=== PATIENT | female | born 1990 | race Hispanic/Latino ===

== ENCOUNTER 2018-09-03 18:27 | Emergency (ER) | payer OTHER, MEDICARE ==
[~2018-09-03 18:27] MED LIST: DEXL60CA3 PO
[2018-09-03 19:13] LABS: BASOPHILS % (AUTO) 0.4 % (0.0-5.0); EOSINOPHILS % (AUTO) 1.3 % (0.0-8.0); HEMATOCRIT 36.9 % (36-48); LYMPHOCYTES % (AUTO) 20.9 % (21.0-51.0); MEAN CORPUSCULAR HEMOGLOBIN 30.6 pg (27.0-33.0); MEAN CORPUSCULAR VOLUME 87.6 fL (79-99); MONOCYTES % (AUTO) 4.4 % (3.0-13.0); PLATELET COUNT (AUTO) 155 K/uL (130-400); RED BLOOD CELL COUNT(AUTO) 4.21 MIL/uL (4.00-5.50); WHITE BLOOD COUNT (AUTO) 9.8 K/uL (4.8-10.8)
[2018-09-03 19:37] LABS: CREATININE 0.7 mg/dL (0.5-1.5); POTASSIUM 3.1 mmol/L (3.5-5.1)
[2018-09-03 19:42] LABS: BILIRUBIN,DIRECT 0.3 mg/dL (0.0-0.3); BILIRUBIN,TOTAL 0.9 mg/dL (0.2-1.0); TOTAL PROTEIN, SERUM 7.7 g/dL (6.0-8.3)
[2018-09-03] MEDS ORDERED: SODIUM CHLORIDE 0.9% 1000ML 1,000 ML IV ONE (19:46)
[2018-09-03] MEDS ORDERED: ONDANSETRON HCL 4 MG/2 ML VIAL ONE (19:52)
[2018-09-03] MEDS ORDERED: FAMOTIDINE/PF 20 MG/2 ML VIAL IV ONE (19:52)
[2018-09-03] MEDS ORDERED: MORPHINE SULFATE 4 MG/1ML SYG ONE (21:20)
== END 2018-09-03 22:47 | disposition home or self-care (01) ==
LOC: EDH 18:27
DX: R10.11 Right upper quadrant pain (principal); R94.5 Abnormal results of liver function studies; R74.8 Abnormal levels of other serum enzymes; R93.2 Abnormal findings on diagnostic imaging of liver and biliary tract; J45.909 Unspecified asthma, uncomplicated; K21.9 Gastro-esophageal reflux disease without esophagitis; Z90.49 Acquired absence of other specified parts of digestive tract
CPT/HCPCS: 36415; 76705; 80048; 80076; 83690; 85025; 96374; 96375; 99285; J2270; J2405; J3490; J7030

== ENCOUNTER 2018-10-01 05:27 | Day surgery (SDC) | payer OTHER, MEDICARE ==
[~2018-10-01] VITALS: Ht 152.4 cm; Wt 72.1 kg
[~2018-10-01 05:27] MED LIST changes: +ALBU8.5H8 IH; +FLUT1DIS IH; +ONDA4TAB10 PO
[2018-10-01] MEDS ORDERED: SODIUM CHLORIDE 0.9% 1000ML 1,000 ML IV ONE (05:42)
[2018-10-01 05:51] VITALS: BP 124/73
[2018-10-01 06:09] LABS: HEMATOCRIT 32.3 % (36-48); MEAN CORPUSCULAR HGB CONC 34.7 g/dL (32.0-36.0); MEAN CORPUSCULAR VOLUME 89.4 fL (79-99); PLATELET COUNT (AUTO) 105 K/uL (130-400); RED BLOOD CELL COUNT(AUTO) 3.61 MIL/uL (4.00-5.50); RED CELL DISTRIBUTION WIDTH 14.1 % (11.0-15.5); WHITE BLOOD COUNT (AUTO) 4.8 K/uL (4.8-10.8)
[2018-10-01 06:22] LABS: INR 0.95 (0.85-1.15)
[2018-10-01 06:56] LABS: BAND NEUTROPHILS % (MANUAL) 1 % (0-2); LYMPHOCYTES % (MANUAL) 28 % (22-44); MONOCYTES % (MANUAL) 5 % (2-9); SEGMENTED NEUTROPHILS % 66 % (40-70)
[2018-10-01] MEDS ORDERED: PROPOFOL 10 MG/ML 20ML VIAL IV ONE ×2 (06:56→07:05)
[2018-10-01 06:57] LABS: MAN.DIFF COMMENT-IMPRESSION MANUAL DIFFERENTIAL; PLATELET MORPHOLOGY COMMENT LARGE PLTS PRESENT
[2018-10-01 07:15] VITALS: BP 91/48
[2018-10-01 07:20] VITALS: BP 104/72
[2018-10-01 07:25] VITALS: BP 106/72
[2018-10-01 07:30] VITALS: BP 110/72
[2018-10-01 07:35] VITALS: BP 112/72
--- NOTE | 2018-10-01 07:35 | NUR ---
dc dc instructions given to pts significant other. instructed to f/u with dr. ruelas, to continue home meds. patient awake and alert, denies any pain or discomforts. pt waiting for her ride to go home, piv removed , site asymptomatic,
--- NOTE | 2018-10-01 07:50 | NUR ---
dc pt dc home via wc, no distress noted. denied any pain or discomforts. accompanied by significant other
== END 2018-10-01 07:50 | disposition home or self-care (01) ==
LOC: ENDO 05:27 → DAH 05:27 → ENDO 07:50
PROVIDERS: ATTEND Internal Medicine
DX: K29.50 Unspecified chronic gastritis without bleeding (principal); K85.90 Acute pancreatitis without necrosis or infection, unspecified; K31.89 Other diseases of stomach and duodenum; K21.9 Gastro-esophageal reflux disease without esophagitis; F41.9 Anxiety disorder, unspecified; F32.9 Major depressive disorder, single episode, unspecified; J45.909 Unspecified asthma, uncomplicated; E66.9 Obesity, unspecified; Z68.31 Body mass index [BMI] 31.0-31.9, adult; Z91.013 Allergy to seafood; Z90.49 Acquired absence of other specified parts of digestive tract; Z79.899 Other long term (current) drug therapy; Z98.890 Other specified postprocedural states; Z83.3 Family history of diabetes mellitus; Z82.49 Family history of ischemic heart disease and other diseases of the circulatory system; Z80.0 Family history of malignant neoplasm of digestive organs
CPT/HCPCS: 36415; 43237; 43239; 84703; 85025; 85610; 88305; A4606; J2704 ×2; J7030

== ENCOUNTER → 2018-12-15 | Outpatient (CLI) | payer OTHER, MEDICARE | END | disposition home or self-care (01) | LOC: RAH 10:36 | PROVIDERS: ATTEND Internal Medicine | DX: K21.9 Gastro-esophageal reflux disease without esophagitis (principal) | CPT/HCPCS: 78264; A9541 ==

== ENCOUNTER 2019-07-31 10:51 | Emergency (ER) | payer OTHER, MEDICARE ==
[2019-07-31 11:58] LABS: CREATININE 0.6 mg/dL (0.5-1.5); POTASSIUM 3.4 mmol/L (3.5-5.1)
== END 2019-07-31 12:38 | disposition home or self-care (01) ==
LOC: EDH 10:51
DX: Z00.8 Encounter for other general examination (principal); J45.909 Unspecified asthma, uncomplicated; K21.9 Gastro-esophageal reflux disease without esophagitis; Z90.49 Acquired absence of other specified parts of digestive tract; Z91.013 Allergy to seafood
CPT/HCPCS: 36415; 80048

== ENCOUNTER 2021-10-04 06:49 | Day surgery (SDC) | payer OTHER, MEDICARE ==
[~2021-10-04] VITALS: Ht 152.4 cm; Wt 68.0 kg
[~2021-10-04 06:49] MED LIST changes: +ESCI20TA38 PO; +LORA-192 PO
[2021-10-04] MEDS ORDERED: PROPOFOL 10 MG/ML 20ML VIAL IV ONE ×2 (07:48→07:56)
[2021-10-04] MEDS ORDERED: LIDOCAINE PF 100MG/5ML (2%) SYRINGE 5ML ONE (07:49)
[2021-10-04 08:14] VITALS: BP 84/45
[2021-10-04 08:18] VITALS: BP 98/59
[2021-10-04 08:23] VITALS: BP 101/61
[2021-10-04] MEDS ORDERED: 0.9%NACL 1000ML 1,000 ML IV ONE (08:37)
== END 2021-10-04 08:40 | disposition home or self-care (01) ==
LOC: ENDO 06:49 → DAH 06:49 → ENDO 08:40
PROVIDERS: ATTEND Surgery
DX: R10.13 Epigastric pain (principal); K21.9 Gastro-esophageal reflux disease without esophagitis; K31.84 Gastroparesis; R63.30 Feeding difficulties, unspecified; J45.909 Unspecified asthma, uncomplicated; F41.9 Anxiety disorder, unspecified; F32.A Depression, unspecified; K74.69 Other cirrhosis of liver; E66.9 Obesity, unspecified; M79.7 Fibromyalgia; Z90.49 Acquired absence of other specified parts of digestive tract; Z83.3 Family history of diabetes mellitus; Z82.49 Family history of ischemic heart disease and other diseases of the circulatory system; Z80.0 Family history of malignant neoplasm of digestive organs; Z98.84 Bariatric surgery status; Z98.890 Other specified postprocedural states; Z68.29 Body mass index [BMI] 29.0-29.9, adult
CPT/HCPCS: 87426; 43239; J7030; J2001; J2704 ×2; 43235

== ENCOUNTER → 2022-10-10 | Outpatient (CLI) | payer OTHER, MEDICARE | END | disposition home or self-care (01) | LOC: RAH 08:36 | PROVIDERS: ATTEND Internal Medicine Gastroenterology | DX: K21.9 Gastro-esophageal reflux disease without esophagitis (principal); K44.9 Diaphragmatic hernia without obstruction or gangrene; R11.0 Nausea; Z98.84 Bariatric surgery status | CPT/HCPCS: 74240 ==

== ENCOUNTER → 2023-06-20 | Outpatient (CLI) | payer OTHER, MEDICARE | END | disposition home or self-care (01) | LOC: RAH 09:06 | PROVIDERS: ATTEND Family Medicine | DX: K31.84 Gastroparesis (principal); R14.0 Abdominal distension (gaseous) | CPT/HCPCS: 74240 ==

== ENCOUNTER → 2023-07-20 | Outpatient (CLI) | payer OTHER, MEDICARE ==
[~2023-07-20] MED LIST changes: +ONDA-243 PO; -ONDA4TAB10 PO
== END | disposition home or self-care (01) ==
LOC: SHCH 08:21
PROVIDERS: ATTEND Internal Medicine Cardiovascular Disease
DX: I08.3 Combined rheumatic disorders of mitral, aortic and tricuspid valves (principal); I95.9 Hypotension, unspecified
CPT/HCPCS: 93306; 93356

== ENCOUNTER → 2024-08-17 | Outpatient (CLI) | payer OTHER, MEDICARE ==
--- NOTE | 2024-08-18 17:10 | HMCIMG ---
Procedure: Double contrast upper GI series CLINICAL HISTORY: Gastroparesis, abdominal distention, GERD without esophageal diabetes; diaphragmatic hernia. PROCEDURE: After patient was given effervescent crystals and thick barium there is no evidence of intrinsic or extrinsic lesion seen in the esophagus. There is small to moderate hiatal hernia with grade 3 esophageal reflux. There is a gastric stimulator implant with the leads in the antrum and body of the stomach. The stomach is normal size shape and configuration the rugal fold appears within normal. The duodenal bulb and duodenal sweep and upper jejunum appears to be normal. IMPRESSION: Type I hiatal hernia with grade 3 esophageal reflux The remaining study demonstrate no other abnormality.
== END | disposition home or self-care (01) ==
LOC: RAH 08:53
PROVIDERS: ATTEND Surgery
DX: K21.9 Gastro-esophageal reflux disease without esophagitis (principal); K44.9 Diaphragmatic hernia without obstruction or gangrene; K31.84 Gastroparesis; R14.0 Abdominal distension (gaseous); R10.13 Epigastric pain; I85.00 Esophageal varices without bleeding
CPT/HCPCS: 74240

== ENCOUNTER 2024-10-13 01:08 | Observation (INO) | payer OTHER, MEDICAID ==
[~2024-10-13] VITALS: Ht 152.4 cm; Wt 65.8 kg
[2024-10-13 02:12] LABS: IMMATURE GRANULOCYTE ABSOLUTE 0.01 K/uL (0-1); NUCLEATED RED BLOOD CELLS 0.0 % (0.0-0.19); PLATELET COUNT (AUTO) 69 K/uL (130-400); RED BLOOD CELL COUNT(AUTO) 2.94 MIL/uL (4.00-5.50); RED CELL DISTRIBUTION WIDTH 15.6 % (11.0-15.5); WHITE BLOOD COUNT (AUTO) 3.5 K/uL (4.8-10.8)
--- NOTE | 2024-10-13 02:12 | ERN ---
ED Note History of Present Illness Stated Complaint: C/O BROKEN PORT TO FEEDING TUBE Chief Complaint: Other Problems Time Seen by MD: 01:14 Time Seen by Midlevel: 01:14 Dictation: The patient is a 33-year-old female with a history of gastroparesis and feeding- tube placement who presents to the emergency department with complaints of broken feeding port onset 11:00 p.m.. Patient reports she is on constant feedings. Reports she has been having trouble with her feeding tube and is scheduled for an IR procedure tomorrow. Allergies: Coded Allergies: No Known Drug Allergies (Unverified Allergy, Unknown, 07/23/16) prednisone (Unverified Allergy, Unknown, 10/03/21) shellfish derived (Unverified Allergy, Unknown, 10/04/18) Home Meds Reported Medications Escitalopram Oxalate (Escitalopram Oxalate) 20 Mg Tablet, 20 MG PO HS, TAB 10/03/21 Lorazepam (Ativan) 1 Mg Tablet, 1 MG PO HS, TAB 10/03/21 Ondansetron (Ondansetron Odt) 4 Mg Tab.rapdis, 4 MG PO DAILY PRN for NAUSEA/VOMITING, TAB 09/29/18 Albuterol Sulfate (Proair Hfa) 8.5 Gm Hfa.aer.ad, 8.5 GM IH DAILY 09/29/18 Fluticasone/Salmeterol (Advair 100-50 Diskus) 1 Each Blst.w.dev, 1 EACH IH DAILY 09/29/18 Dexlansoprazole (Dexilant) 60 Mg Cap.mp, 60 MG PO DAILY 07/23/16 Past Medical History Past Medical History: Hypothyroid, Other Surgical History: Cholecystectomy, Other Surgical History Other: FEEDING TUBE; GASTRIC SLEEVE LMP: Oct 10, 2024 RN Note Reviewed/Agreed w/PFSH: Yes Review of System Dictation Constitutional: Negative for fever,chills, and weight loss Eyes: Negative for injury, pain,redness, and discharge ENT: Negative for injury,pain or swelling Cardiovascular: Negative for chest pain, palpitations, and edema Respiratory: Negative for shortness of breath, cough, and wheezing, Abdomen/GI: Negative for abdominal pain, nausea, vomiting, diarrhea, and constipation positive for feeding tube malfunction Back: Negative for injury and pain : Negative for injury, bleeding and discharge MS/Extremity: Negative for injury and deformity Skin: Negative for rash, and discoloration Neuro: Negative for headache, weakness, numbness, tingling, and seizure Psych: Negative for suicide ideation, homicidal ideation, and hallucinations Initial Vital Sign VS Vital Signs Date Time Temp Pulse Resp B/P (MAP) Pulse Ox O2 Delivery O2 Flow Rate FiO2 10/13/24 01:10 98.8 76 20 106/61 99 Room Air 10/13/24 01:36 0 21 Physical Exam Dictation Vital Signs reviewed General Appearance: Alert, oriented x 3, no acute distress, well developed, nourished. Head and Face: non-traumatic. Eyes: PERRL, pink conjunctivas, eyelid no trauma, anterior chamber with arcus senilis. Ears: Pinnas intact and no signs of trauma or erythema ear canals clear and no discharge TM no erythema Nose: No discharge, no bleeding. Oropharynx: Mouth normal, tongue pink. pharynx clear,no erythema, tonsils no exudates, no abscesses noted, mucous membrane moist Neck: Supple, non-tender, no thyromegaly, no masses, no JVD, no bruits Breast:Deferred Chest:No tenderness, no crepitus, no paradoxical movement, no retractions Lungs:Clear, well-ventilated, symmetric, no rales, no wheezing, no rhonchi, no stridor, good breath sounds bilaterally Heart: Regular rate, regular rhythm, no murmur, no gallops Vascular: no peripheral edema, Abdomen: Soft, positive bowel sounds, nondistended, no guarding, nontender, no rebound, no masses no hepatomegaly, no splenomegaly, no Covarrubias's sign, no hernias. Feeding tube noted to left upper quadrant Rectal: Deferred Genital: Deferred Neurological: Normal speech, motor function intact, sensory function intact Musculoskeletal: Neck nontender, full range of motion, back nontender, full range of motion, Extremities: nontender, full range of motion Skin: Color pink, dry, no turgor, no rash, no lacerations, no abrasions, no contusions. Lymphatic: Deferred Results (Laboratory/Radiology) Laboratory/Radiology Laboratory Tests Test 10/13/24 01:55 White Blood Count 3.5 K/uL (4.8-10.8) L Red Blood Count 2.94 MIL/uL (4.00-5.50) L Hemoglobin 8.7 g/dL (12.0-16.0) L Hematocrit 25.3 % (36-48) L Mean Corpuscular Volume 86.1 fL (79-99) Mean Corpuscular Hemoglobin 29.6 pg (27.0-33.0) Mean Corpuscular Hemoglobin Concent 34.4 g/dL (32.0-36.0) Red Cell Distribution Width 15.6 % (11.0-15.5) H Platelet Count 69 K/uL (130-400) L Mean Platelet Volume 11.8 fL (7.5-10.5) H Immature Granulocyte % (Auto) 0.3 % (0-1) Neutrophils (%) (Auto) 71.1 % (40.0-77.0) Lymphocytes (%) (Auto) 16.8 % (21.0-51.0) L Monocytes (%) (Auto) 6.6 % (3.0-13.0) Eosinophils (%) (Auto) 4.6 % (0.0-8.0) Basophils (%) (Auto) 0.6 % (0.0-5.0) Neutrophils # (Auto) 2.5 K/uL (1.8-7.7) Lymphocytes # (Auto) 0.6 K/uL (1.0-4.8) L Monocytes # (Auto) 0.2 K/uL (0.1-1.0) Eosinophils # (Auto) 0.16 K/uL (0.00-0.70) Basophils # (Auto) 0.02 K/uL (0.00-0.20) Absolute Immature Granulocyte (auto 0.01 K/uL (0-1) Nucleated Red Blood Cells 0.0 % (0.0-0.19) Platelet Morphology Comment See comments Urine Color LIGHT-YELLOW (YELLOW) Urine Appearance CLOUDY (CLEAR) H Urine pH 6.0 (5.0-8.0) Urine Specific Benson 1.015 (1.001-1.031) Urine Protein NEGATIVE mg/dL (NEGATIVE) Urine Glucose (UA) NEGATIVE mg/dL (NEGATIVE) Urine Ketones NEGATIVE mg/dL (NEGATIVE) Urine Occult Blood NEGATIVE (NEGATIVE) Urine Nitrate NEGATIVE (NEGATIVE) Urine Bilirubin NEGATIVE mg/dL (NEGATIVE) Urine Urobilinogen 0.2 mg/dL (0.2-1.0) Urine Leukocyte Esterase NEGATIVE Teodora/uL Urine RBC 2-5 /HPF (0-1) H Urine WBC 6-10 /HPF (0-1) H Urine Squamous Epithelial Cells MOD /HPF (0-2) Urine Bacteria FEW /HPF (None Seen) Sodium Level 135 mmol/L (136-145) L Potassium Level 3.8 mmol/L (3.5-5.1) Chloride Level 99 mmol/L (101-111) L Carbon Dioxide Level 28 mmol/L (21-32) Blood Urea Nitrogen 15 mg/dL (7-18) Creatinine 0.6 mg/dL (0.5-1.0) Glomerular Filtration Rate Calc 123 mL/min (>90) Random Glucose 92 mg/dL (70-105) Total Calcium 8.3 mg/dL (8.5-10.1) L Serum Test, Qualitative NEGATIVE (NEGATIVE) Labs Reviewed?: Yes ED Course ED Course Orders Procedure Category Date Status Time Cbc With Differential LAB 10/13/24 Complete 01:35 Basic Metabolic Panel LAB 10/13/24 Complete 01:35 Testing, LAB 10/13/24 Complete Serum Hcg 01:35 Urinalysis Profile LAB 10/13/24 Complete 02:06 Ondansetron 4mg Inj PHA 10/13/24 Complete (Zofran 4mg Inj) 02:30 Morphine 4mg Syg PHA 10/13/24 Complete (Morphine 4mg Syg) 02:30 Dextrose 5 %-0.45 % PHA 10/13/24 In Process Nacl (D5 1/2ns) 02:30 Culture Urine CHE 10/13/24 In Process 02:46 Current Medications Medications (Trade) Dose Ordered Sig/Chucky Route PRN Reason Start Time Stop Time Status Last Admin Dose Admin Dextrose/Sodium Chloride 1,000 ml @ 75 mls/hr [id number] IV 10/13/24 02:30 11/12/24 02:29 10/13/24 02:53 Morphine Sulfate (morPHINE 4MG SYG) 4 mg ONCE ONCE IVP 10/13/24 02:30 10/13/24 02:31 DC 10/13/24 02:15 Ondansetron HCl (zoFRAN 4MG INJ) 4 mg ONCE ONCE IVP 10/13/24 02:30 10/13/24 02:31 DC 10/13/24 02:15 Vital Signs Date Time Temp Pulse Resp B/P (MAP) Pulse Ox O2 Delivery O2 Flow Rate FiO2 10/13/24 01:36 98.8 75 18 122/66 99 Room Air* 0 21 10/13/24 01:10 98.8 76 20 106/61 99 Room Air Medical Decision Making [facility] MDM: The patient is a 33-year-old female with a history of gastroparesis and feeding-tube placement who presents to the emergency department with complaints of broken feeding port onset 11:00 p.m.. Patient reports she is on constant feedings. Reports she has been having trouble with her feeding tube and is scheduled for an IR procedure tomorrow. CBC showed leukopenia, normocytic anemia, chemistry showed mild hyponatremia, hypochloremia. Patient will be admitted for further evaluation of Gj tube by IR. Differential diagnosis: Gastrostomy tube displacement, electrolyte imbalance, feeding tube malfunction Comorbidities: Gastroparesis, gastric sleeve Tests considered and not ordered secondary to shared decision making include: none Previous outside records reviewed: none Risk of complication and/or morbidity or mortality of patient management: The patient meets criteria for admission. Need for emergency major/minor surgery: No There are no social concerns with this patient. I independently interpreted the tests I ordered (labs, urinalysis, etc.). I discussed the case with the hospitalist for admission. Pat RIVERA who accepts admission I discussed the case with the following specialists: none. Historian: pateint. I independently interpreted imaging studies and EKGs that I ordered (US, CT, XR, EKG, etc.). External chart review: none. Medical management and examination interpretation discussions were had by me with other qualified healthcare professionals as indicated for the patient's care. DX & DISP Disposition: Inpatient Decision to Admit Date: Oct 13, 2024 Decision to Admit Time: 03:32 Departure Impression: Primary Impression: Feeding tube dysfunction Condition: Stable Referrals: BALBINA HAYNES MD (PCP) I have examined patient, & reviewed all documents, & agreed W/ the Diagnosis, and Plan JOSE MARIA KUMAR Oct 13, 2024 02:12
[2024-10-13 02:25] LABS: APPEARANCE,URINE CLOUDY (CLEAR); GLUCOSE, URINE (UA) NEGATIVE (NEGATIVE); LEUKOCYTE ESTERASE ,URINE NEGATIVE Leu/uL (NEGATIVE); NITRATE,URINE NEGATIVE (NEGATIVE); OCCULT BLOOD,URINE NEGATIVE (NEGATIVE)
[2024-10-13 02:29] LABS: CREATININE 0.6 mg/dL (0.5-1.0); GLOMERULAR FILTR. RATE CALC 123.0 mL/min (>90); GLUCOSE,RANDOM 92.0 mg/dL (70-105); SODIUM SERUM 135.0 mmol/L (136-145); UREA NITROGEN, BLOOD 15.0 mg/dL (7-18)
[2024-10-13 02:43] LABS: ADD UA MICROSCOPIC YES
[2024-10-13 02:46] LABS: SQUAMOUS EPITHELIAL CELL,UR MOD /HPF (0-2)
[2024-10-13] MEDS: DEXTROSE 5 %-0.45 % NACL 1,000 ML IV SCH (02:53)
[2024-10-13] MEDS: LACTATED RINGERS 1000ML 1,000 ML IV SCH (03:54)
[2024-10-13] MEDS ORDERED: LACTULOSE 20 GM/30 ML UDCUP PO PRN (04:00)
[2024-10-13] MEDS ORDERED: ALBUTEROL 0.083% 2.5 MG/3 ML INH IH PRN (04:00)
[2024-10-13 04:59] VITALS: PULSE 71; RESP 19; O2SAT 99
[2024-10-13 06:43] VITALS: PULSE 79; RESP 18; O2SAT 99
--- NOTE | 2024-10-13 08:08 | NUR ---
SPOKE WITH JULEE STRADDLE BUG AT THIS TIME FOR ITCHING AND INDIGESTION MEDICATIONS, ORDERS GIVEN AND READ BACK AT THIS TIME./JASMYN
[2024-10-13] MEDS: MAG/ALUM/SIMETH 30 ML UDCUP PO PRN (08:50)
[2024-10-13 09:11] LABS: INR 1.14 (0.85-1.15)
--- NOTE | 2024-10-13 10:02 | HP ---
[facility] HISTORY & PHYSICAL Date Patient Seen: Oct 13, 2024 Time of Visit: 10:01 Supervising Physician: Dr. Berlin Headley Primary Care Physician: Dr. Rosendo Caban Outpatient Specialists: [ ] Inpatient Consults: [ ] PROBLEM LIST: GJ tube dysfunction Gastric sleeve Sanaz-en-Y Gastric bypass Gastroparesis Hypoithyroid Depression HPI: Patient is a 33 year old female with a past mefical history for gastroparesis s/p gastric GJ tube placement on 09/23/24. Patient reported to the ED after the port for her J tube had falle nout preventing further use. Patient also states she suspects an infection as she has seen a substance she describes as pus in the line. Also with difficulty on current formula diet. Will place consult for dietary to assess possilbe new diet formula for fewer complications and wet cleaner machine flushses. Patient currently rudy pain, able to tolerate her meds orally, endorses severe allergy to medical tape and surgical glue. Also requesting a button port, advised we will proced toay with IR intervention tp replace current tube based on what is on hand and will schedule with GI for evaluation of tube options once she is able to tolerate feeds again. Patient agreed, pending IR GJ tube replacement. PAST MEDICAL HX: see above PAST SURGICAL HX: noncontributory SOCIAL HISTORY: No tobacco, ETOH, or illicit drug use Coded Allergies: adhesive tape (Unverified Allergy, Mild, ITCHING, 10/13/24) No Known Drug Allergies (Unverified Allergy, Unknown, 07/23/16) prednisone (Unverified Allergy, Unknown, 10/03/21) shellfish derived (Unverified Allergy, Unknown, 10/04/18) REVIEW OF SYSTEMS: 12 point ROS reviewed with patient. Pertinent positives mentioned above. Otherwise negative. PHYSICAL EXAM: GENERAL: alert, weak, awake oriented x 3 HEENT: EOMI, Sclera non icteric, moist mucosa NECK: Supple, no JVD, trachea midline LUNGS: Clear breath sounds bilaterally. No wheezes HEART: Regular rate and rhythm. Normal S1 and S2, without murmurs ABD: Abdomen soft, nontender. Bowel sounds present EXT: No clubbing cyanosis or edema NEURO: Alert and oriented to person, follows commands Vital Signs (last 8hr) Date Time Temp Pulse Resp B/P (MAP) Pulse Ox O2 Delivery O2 Flow Rate FiO2 10/13/24 07:46 98.4 72 18 99/51 99 Room Air* 0 21 10/13/24 06:43 79 18 N/A Room Air 21 10/13/24 05:09 99.0 78 18 128/68 99 Room Air* 0 21 10/13/24 04:59 71 19 N/A Room Air 0.0 21 LABS: Hematology Labs: Test 10/13/24 01:55 Range/Units White Blood Count 3.5 L 4.8-10.8 K/uL Red Blood Count 2.94 L 4.00-5.50 MIL/uL Hemoglobin 8.7 L 12.0-16.0 g/dL Hematocrit 25.3 L 36-48 % Mean Corpuscular Volume 86.1 79-99 fL Mean Corpuscular Hemoglobin 29.6 27.0-33.0 pg Mean Corpuscular Hemoglobin Concent 34.4 32.0-36.0 g/dL Red Cell Distribution Width 15.6 H 11.0-15.5 % Platelet Count 69 L 130-400 K/uL Mean Platelet Volume 11.8 H 7.5-10.5 fL Immature Granulocyte % (Auto) 0.3 0-1 % Neutrophils (%) (Auto) 71.1 40.0-77.0 % Lymphocytes (%) (Auto) 16.8 L 21.0-51.0 % Monocytes (%) (Auto) 6.6 3.0-13.0 % Eosinophils (%) (Auto) 4.6 0.0-8.0 % Basophils (%) (Auto) 0.6 0.0-5.0 % Neutrophils # (Auto) 2.5 1.8-7.7 K/uL Lymphocytes # (Auto) 0.6 L 1.0-4.8 K/uL Monocytes # (Auto) 0.2 0.1-1.0 K/uL Eosinophils # (Auto) 0.16 0.00-0.70 K/uL Basophils # (Auto) 0.02 0.00-0.20 K/uL Absolute Immature Granulocyte (auto 0.01 0-1 K/uL Nucleated Red Blood Cells 0.0 0.0-0.19 % Platelet Morphology Comment See comments Chemistry Labs: Test 10/13/24 07:57 10/13/24 01:55 Range/Units Whole Blood Glucose 89 70-110 MG/DL Sodium Level 135 L 136-145 mmol/L Potassium Level 3.8 3.5-5.1 mmol/L Chloride Level 99 L 101-111 mmol/L Carbon Dioxide Level 28 21-32 mmol/L Blood Urea Nitrogen 15 7-18 mg/dL Creatinine 0.6 0.5-1.0 mg/dL Glomerular Filtration Rate Calc 123 >90 mL/min Random Glucose 92 70-105 mg/dL Total Calcium 8.3 L 8.5-10.1 mg/dL Serum Test, Qualitative NEGATIVE NEGATIVE Coagulation Labs: Test 10/13/24 08:37 Range/Units Prothrombin Time 11.9 H 9.6-11.6 SEC Prothromb Time International Ratio 1.14 0.85-1.15 Activated Partial Thromboplast Time 25.9 L 26.3-35.5 SEC DIAGNOSTICS / RADIOLOGY RESULTS: [ ] PLAN NEURO: Minimize central acting medications as possible. Maintain fall precautions, adequate lighting during the day PULMONARY: Supplemental 02 as needed. Maintain aspiration precautions at all times CARDIOVASCULAR: Follow hemodynamics. Vital signs per facility protocol GI & NUTRITION: Continue with nutritional support. Continue stool softeners and laxatives as needed. KIDNEYS & ELECTROLYTES: Strict monitoring of intake, output and overall fluid balance. Avoid nephrotoxic medications to the extent possible. Medications to be dosed according to renal function. Monitor electrolytes and replace as needed ENDOCRINE: Maintain blood glucose between 100-180 at all times. Hypoglycemia protocol in place INFECTIOUS DISEASE: Trend temperature, WBC and procalcitonin level Follow cultures, deescalate antibiotics as soon as possible. Panculture if new onset fever ONCOLOGY/HEMATOLOGY/COAGULATION: Monitor for s/s of bleeding Monitor hemoglobin, coagulation studies as needed SKIN: Pressure ulcer prevention per facility protocol Specialty mattress ORTHO/REHAB: Continue PT/OT Prophylaxis: Continue GI and DVT prophylaxis Code Status: Full Resuscitation Disposition: TBD Other: Total patient care time exceeds 35 minutes excluding all procedures. PRASHANTH BROWN Oct 13, 2024 10:02
[2024-10-13 11:22] VITALS: PULSE 76; RESP 18; O2SAT 98
--- NOTE | 2024-10-13 14:37 | NUR ---
PATIENT RESTING IN A POSITION OF COMFORT IN THE STRETCHER, RESPIRATIONS EVEN AND UNLABORED, NO SIGNS OR SYMPTOMS OF DISTRESS NOTED AT THIS TIME. CALL LIGHT WITHIN REACH./JASMYN
--- NOTE | 2024-10-13 16:09 | NUR ---
DCP:HOME Pt currently lives with her parents and girlfriend. Pt does have a shower chair and cane that she uses at home. Pt does have a provider for 18hrs a week and she assist her with all ADLs, home management, and meals. PCP is Dr. Rosendo Caban and uses [facility] for any RX needs. At [place] pt will want to go home and family can assist with transportation. Addendum: 10/13/24 at 1616 by FLORENCIA PRESTON SS Amended: Links added.
--- NOTE | 2024-10-13 16:33 | NUR ---
REPORT GIVEN TO CLARISA RN AT THIS TIME, PATIENT TO GO FOR PEG TUBE REPLACEMENT FIRST AND TO ASSIGNED ROOM AFTER. NO FURTHER QUESTIONS ASKED AT THIS TIME./JASMYN
--- NOTE | 2024-10-13 17:46 | NUR ---
SPOKE WITH SHANTA GUPTA FROM [facility] AT THIS TIME FOR MED ORDERS DUE TO LOW BG OF 22, 1 AMP OF D50 GIVEN, D5 1/2 NS TO BE INCREASED AT 100CC/HR. PRN ORDER GIVEN FOR BG LESS THAN 60 TO ADMINISTER 1 AMP OF D50. PT IS AOX4 AND NO SIGNS OR SYMPTOMS OF DISTRESS NOTED AT THIS TIME./JASMYN
[2024-10-13] MEDS: DEXTROSE 50%-WATER 50 ML DISP.SYRIN IV ONE ×2 (17:52)
[2024-10-13] MEDS ORDERED: DEXTROSE 50%-WATER 50 ML DISP.SYRIN IV PRN (18:00)
[2024-10-13 18:50] VITALS: BP 101/64; PULSE 79; RESP 20; TEMP 98
[2024-10-13] MEDS ORDERED: HYDR-3422 PO (22:14)
[2024-10-13] MEDS ORDERED: FAMO40SU9 PO (22:14)
[2024-10-13] MEDS ORDERED: SPIR100T5 PO (22:14)
[2024-10-13] MEDS ORDERED: LUBI24CA40 PO (22:14)
[2024-10-13] MEDS ORDERED: FURO20TA4 PO (22:14)
[2024-10-13] MEDS ORDERED: DICY10SY2 PO (22:14)
[2024-10-13] MEDS ORDERED: [UNRECOGNIZED DRUG - CODE] PO (22:14)
[2024-10-13] MEDS ORDERED: ROPI1TAB46 PO (22:19)
[2024-10-13] MEDS ORDERED: LEVO50TA11 PO (22:19)
[2024-10-13] MEDS ORDERED: AMYL1CAP61 PO (22:19)
[2024-10-13] MEDS ORDERED: TRAZ-258 PO (22:19)
[2024-10-13] MEDS ORDERED: URSO500T7 PO (22:19)
[2024-10-13] MEDS ORDERED: VONO1COM PO (22:19)
[2024-10-13] MEDS ORDERED: TRAM-543 PO (22:19)
[2024-10-14] VITALS (18 sets, daily range): BP systolic 84–102; BP diastolic 37–60; PULSE 64–86; RESP 18–24; TEMP 97.6–98.7; O2SAT 96–97
[2024-10-14 05:20] LABS: PLATELET COUNT (AUTO) 52 K/uL (130-400); RED BLOOD CELL COUNT(AUTO) 2.78 MIL/uL (4.00-5.50); RED CELL DISTRIBUTION WIDTH 15.3 % (11.0-15.5); WHITE BLOOD COUNT (AUTO) 2.3 K/uL (4.8-10.8)
[2024-10-14 05:30] LABS: CREATININE 0.7 mg/dL (0.5-1.0); GLOMERULAR FILTR. RATE CALC 119.0 mL/min (>90); GLUCOSE,RANDOM 83.0 mg/dL (70-105); PHOSPHORUS 5.2 mg/dL (2.5-4.9); SODIUM SERUM 136.0 mmol/L (136-145); UREA NITROGEN, BLOOD 17.0 mg/dL (7-18)
[2024-10-14] MEDS: 0.9% NACL 500ML IV.SOLN 500 ML IV ONE (05:53)
[2024-10-14 06:00] LABS: LYMPHOCYTES % (MANUAL) 25 % (22-44); MONOCYTES % (MANUAL) 8 % (2-9); SEGMENTED NEUTROPHILS % 67 % (40-70)
[2024-10-14 06:01] LABS: MAN.DIFF COMMENT-IMPRESSION MANUAL DIFFERENTIAL; NUCLEATED RED BLOOD CELLS 0.0 % (0.0-0.19); PLATELET MORPHOLOGY COMMENT DECREASED
[2024-10-14] MEDS: FAMOTIDINE 20MG VIAL IV PRN (08:49)
--- NOTE | 2024-10-14 11:25 | NUR ---
Nutrition consult per TF recs Reviewed labs, notes, and medications. Pt with D5W Q10H @ 100 ml/hr, J tube in place, pending IR GJ tube replacement, NPO status, IV fluid, phos 5.2(H) per chart review. Wt via standing scale, last BM 10/13/24, no edema, well nourished, no wounds per nursing. Partner in room during visit. Pt reported she cannot tolerate SF products, has never taken a MVI, eats 1-2 small meals per day, tends to get diarrhea after meals, takes 15 mins to eat, consistently drinking regular electrolyte drinks throughout the day, sees PCP 3-4 months, to see PCP after d/c, snacks often, was able to tolerate Vital AF 1.2 with no issues, J-tube clogs with 1.5 formulas, is able to have a rate of 55-60 ml/hr with Vital 1.2 AF, UBW of 150 lbs 6 months ago, knows how to administer TF. TF recs to meet 100% PO intake, appropriate due to Pt's poor PO intake <25 %PO at home reported. Vital 1.2 AF high in protein and Pt tolerates, appropriate viscosity. Highly recommend Pt to use once d/c. Start TF rate @ 25 ml/hr for the first 4 hours, increase 5 ml Q2H until you reach goal rate. If residual >500 ml stop TF for 2 hours and then restart if residual continues to be >500 ml stop TF and notify MD MASTERS reviewed educational material for post-op diet recommendations. Pt was informed of importance of lifelong vitamin/mineral supplementation, choosing protein first during meals (pt was educated on higher protein requirements), choosing low calorie, sugar free, carbonated free and caffeine beverages. RD also informed pt on lifelong commitment to exercise and dietary recommendations for optimal success post surgery. RD encouraged getting blood work every 3 to 6 months, including B-vitamins, Pt verbalized understanding. RD informed Pt on moving around after procedure to prevent DVT, Pt verbalized understanding. Pt was encouraged to contact RD as questions arise and to attend support groups. fair to poor compliance suspected. Pt will benefit from outpatient bariatric dietitian. Pt to follow up with PCP for labs. Recommendations: -Texture per [employer] [facility] MANAGER: when able provide bariatric phase IV (solids) -Provide banana bag with thiamine 100 mg due to Pt never starting MVI s/p bariatric procedure -Monitor PO intake -Encourage PO intake as able -Provide Vital AF 1.2 @ 60 ml /hr x 24 hrs + FWF of 150Q4H (total of 900 ml), J-tube not appropriate for bolus Provides: 1728 kcals, 108 gm pro, 2067 ml per day -Monitor electrolytes -Monitor diet tolerance -Monitor BM -Order vit. B1, vit b12, b6 vit. D, calcium labs due to Pt hx of bariatric procedure -Monitor wts -Monitor PO intake -Monitor TF tolerance + need for TF adjustment -Recommend Pt to follow up with PCP -Monitor goals of care RD available for consult per protocol Addendum: 10/14/24 at [address] Amended: Links added.
[2024-10-14] MEDS: M.V.I. IV [ADULT] 10 ML, FOLic ACID 5 MG/ML VIAL 1 MG, THIAMINE HCL 100 MG in 0.9%NACL ... IV SCH (12:18)
[2024-10-14] MEDS ORDERED: HEParin-NS 1,000 UNIT/500 ML 500 ML IV ONE (13:35)
[2024-10-14] MEDS ORDERED: LIDOCAINE HCL 400MG/20ML VIAL ONE (13:35)
[2024-10-14] MEDS ORDERED: MIDAZOLAM HCL 1 MG/ML 2ML VIAL ONE (13:49)
[2024-10-14] MEDS ORDERED: DIATR MEGLU/DIATRIZOATE SODIUM 30 ML BOTTLE ONE (13:58)
--- NOTE | 2024-10-14 14:39 | NUR ---
REPORT RECEIVED REPORT FROM PHYLLIS LARSON FROM [facility]. REPORTS: VS: BP: 114/62 HR: 73 02:100\[address] MATHIS CHANGED PENNIE PORT, 18FR.
--- NOTE | 2024-10-14 14:45 | NUR ---
ARRIVAL TO UNIT PT ARRIVED VIA STRETCHER. A&OX4. NON LABORED BREATHING. NOTED GASTRIC-JEJUNAL TUBE IN PLACE. 18FR. DRY AND INTACT. PT REPORTS PAIN 6\10 TO ABDOMEN AND NAUSEA.
[2024-10-14] MEDS ORDERED: COMPOUND IV REFRIGERATED 1 EACH IVSOLN MISC PRN (15:30)
--- NOTE | 2024-10-14 15:59 | OP ---
DATE OF PROCEDURE: 10/14/2024 PROCEDURE: Fluoroscopy-guided exchange of a feeding gastrojejunostomy tube, 18-Taiwanese. CLINICAL HISTORY: This is a 33-year-old female with a GJ tube with malfunctioning for exchange. The patient also has IODINE ALLERGY; therefore, Gastrografin was given. PROCEDURE: IV conscious sedation was given titrated over 100 mcg of fentanyl and 2 mg of Versed and 4 mg of Zofran, which was titrated during the procedure. Under fluoroscopy, an angiographic wire was advanced into the existing gastrojejunostomy tube and balloon was deflated and removed. The wire was then advanced under fluoroscopy guidance into the proximal jejunum. Over an angiographic wire, CHE gastric jejunal feeding tube, 18-Taiwanese, was placed and balloon was insufflated with saline and a small amount of Gastrografin. Gastrografin was injected through the new gastrojejunostomy tube and it appears to be in satisfactory position and proximal jejunum. The patient tolerated the procedure well. FINDINGS: Fluoroscopy-guided placement of an 18-Taiwanese gastrojejunostomy tube, which appears to be in satisfactory position. TID: [id number] RECEIPT: [id number]
--- NOTE | 2024-10-14 21:30 | HP ---
[facility] HISTORY & PHYSICAL Date Patient Seen: Oct 14, 2024 Time of Visit: 21:29 Supervising Physician: Dr. Berlin Headley Primary Care Physician: Dr. Rosendo Caban Outpatient Specialists: [ ] Inpatient Consults: [ ] PROBLEM LIST: GJ tube dysfunction Gastric sleeve Sanaz-en-Y Gastric bypass Gastroparesis Hypoithyroid Depression HPI: Patient is a 33 year old female with a past mefical history for gastroparesis s/p gastric GJ tube placement on 09/23/24. Patient reported to the ED after the port for her J tube had falle nout preventing further use. Patient also states she suspects an infection as she has seen a substance she describes as pus in the line. Also with difficulty on current formula diet. Will place consult for dietary to assess possilbe new diet formula for fewer complications and block cleaner flushses. Patient currently rudy pain, able to tolerate her meds orally, endorses severe allergy to medical tape and surgical glue. Also requesting a button port, advised we will proced toay with IR intervention tp replace current tube based on what is on hand and will schedule with GI for evaluation of tube options once she is able to tolerate feeds again. Patient agreed, pending IR GJ tube replacement. PAST MEDICAL HX: see above PAST SURGICAL HX: noncontributory SOCIAL HISTORY: No tobacco, ETOH, or illicit drug use Coded Allergies: adhesive tape (Unverified Allergy, Mild, ITCHING, 10/13/24) No Known Drug Allergies (Unverified Allergy, Unknown, 07/23/16) prednisone (Unverified Allergy, Unknown, 10/03/21) shellfish derived (Unverified Allergy, Unknown, 10/04/18) REVIEW OF SYSTEMS: 12 point ROS reviewed with patient. Pertinent positives mentioned above. Otherwise negative. PHYSICAL EXAM: GENERAL: alert, weak, awake oriented x 3 HEENT: EOMI, Sclera non icteric, moist mucosa NECK: Supple, no JVD, trachea midline LUNGS: Clear breath sounds bilaterally. No wheezes HEART: Regular rate and rhythm. Normal S1 and S2, without murmurs ABD: Abdomen soft, nontender. Bowel sounds present EXT: No clubbing cyanosis or edema NEURO: Alert and oriented to person, follows commands Vital Signs (last 8hr) Date Time Temp Pulse Resp B/P (MAP) Pulse Ox O2 Delivery O2 Flow Rate FiO2 10/14/24 19:11 71 96/50 100 10/14/24 19:00 97.9 78 24 100/60 100 Room Air 10/14/24 19:00 69 87/40 100 10/14/24 18:00 71 86/46 100 10/14/24 17:00 83 101/60 100 10/14/24 16:30 64 92/47 96 10/14/24 16:00 64 97/45 99 10/14/24 15:50 65 101/52 100 10/14/24 15:50 86 95/56 10/14/24 14:45 70 102/52 98 LABS: Hematology Labs: Test 10/14/24 04:36 10/13/24 01:55 Range/Units White Blood Count 2.3 L 4.8-10.8 K/uL Red Blood Count 2.78 L 4.00-5.50 MIL/uL Hemoglobin 8.1 L 12.0-16.0 g/dL Hematocrit 24.8 L 36-48 % Mean Corpuscular Volume 89.2 79-99 fL Mean Corpuscular Hemoglobin 29.1 27.0-33.0 pg Mean Corpuscular Hemoglobin Concent 32.7 32.0-36.0 g/dL Red Cell Distribution Width 15.3 11.0-15.5 % Platelet Count 52 L 130-400 K/uL Mean Platelet Volume 11.4 H 7.5-10.5 fL Segmented Neutrophils % 67 40-70 % Lymphocytes % (Manual) 25 22-44 % Monocytes % (Manual) 8 2-9 % Nucleated Red Blood Cells 0.0 0.0-0.19 % Differential Comment MANUAL DIFFERENTIAL White Cell Morphology Comment Platelet Morphology Comment DECREASED Red Blood Cell Morphology HYPOCHROM CELLS 1+ Immature Granulocyte % (Auto) 0.3 0-1 % Neutrophils (%) (Auto) 71.1 40.0-77.0 % Lymphocytes (%) (Auto) 16.8 L 21.0-51.0 % Monocytes (%) (Auto) 6.6 3.0-13.0 % Eosinophils (%) (Auto) 4.6 0.0-8.0 % Basophils (%) (Auto) 0.6 0.0-5.0 % Neutrophils # (Auto) 2.5 1.8-7.7 K/uL Lymphocytes # (Auto) 0.6 L 1.0-4.8 K/uL Monocytes # (Auto) 0.2 0.1-1.0 K/uL Eosinophils # (Auto) 0.16 0.00-0.70 K/uL Basophils # (Auto) 0.02 0.00-0.20 K/uL Absolute Immature Granulocyte (auto 0.01 0-1 K/uL Chemistry Labs: Test 10/14/24 19:42 10/14/24 04:36 10/13/24 17:30 10/13/24 01:55 Range/Units Whole Blood Glucose 145 #H 70-110 MG/DL Sodium Level 136 136-145 mmol/L Potassium Level 4.5 3.5-5.1 mmol/L Chloride Level 101 101-111 mmol/L Carbon Dioxide Level 31 21-32 mmol/L Blood Urea Nitrogen 17 7-18 mg/dL Creatinine 0.7 0.5-1.0 mg/dL Glomerular Filtration Rate Calc 119 >90 mL/min Random Glucose 83 70-105 mg/dL Total Calcium 8.0 L 8.5-10.1 mg/dL Phosphorus Level 5.2 H 2.5-4.9 mg/dL Magnesium Level 2.20 1.80-2.40 mg/dL Vitamin B12 Level 599 193-986 pg/mL Bedside Glucose Comment Notified Nurse Serum Test, Qualitative NEGATIVE NEGATIVE Coagulation Labs: Test 10/13/24 08:37 Range/Units Prothrombin Time 11.9 H 9.6-11.6 SEC Prothromb Time International Ratio 1.14 0.85-1.15 Activated Partial Thromboplast Time 25.9 L 26.3-35.5 SEC DIAGNOSTICS / RADIOLOGY RESULTS: [ ] PLAN NEURO: Minimize central acting medications as possible. Maintain fall precautions, adequate lighting during the day PULMONARY: Supplemental 02 as needed. Maintain aspiration precautions at all times CARDIOVASCULAR: Follow hemodynamics. Vital signs per facility protocol GI & NUTRITION: Continue with nutritional support. Continue stool softeners and laxatives as needed. KIDNEYS & ELECTROLYTES: Strict monitoring of intake, output and overall fluid balance. Avoid nephrotoxic medications to the extent possible. Medications to be dosed according to renal function. Monitor electrolytes and replace as needed ENDOCRINE: Maintain blood glucose between 100-180 at all times. Hypoglycemia protocol in place INFECTIOUS DISEASE: Trend temperature, WBC and procalcitonin level Follow cultures, deescalate antibiotics as soon as possible. Panculture if new onset fever ONCOLOGY/HEMATOLOGY/COAGULATION: Monitor for s/s of bleeding Monitor hemoglobin, coagulation studies as needed SKIN: Pressure ulcer prevention per facility protocol Specialty mattress ORTHO/REHAB: Continue PT/OT Prophylaxis: Continue GI and DVT prophylaxis Code Status: Full Resuscitation Disposition: TBD Other: Total patient care time exceeds 35 minutes excluding all procedures. PRASHANTH BROWN Oct 14, 2024 21:30
--- NOTE | 2024-10-14 21:35 | PN ---
[facility] PROGRESS NOTE Date Patient Seen: Oct 14, 2024 Time of Visit: 21:31 Supervising Physician: Dr. Givens Primary Care Physician: Dr. Rosendo Caban Outpatient Specialists: [ ] Inpatient Consults: [ ] PROBLEM LIST: GJ tube dysfunction -s/p exchange of new GJ tube by IR 10/14/24 Gastric sleeve Sanaz-en-Y Gastric bypass Gastroparesis Hypoithyroid Depression INTERVAL HISTORY: Patient is seen at bedside today following her procedure for new GJ tube. She is comfortable, denies any pain. Patient was exposed to medical adhesive following the procedure which was promptly removed however patient currently with irritation and dermatitis at the site. 25 mg Benadryl IV push PRN q.6 hours ordered. The GJ tube that the patient has been placed is not compatible with the equipment the patient has not home at this time. Nursing staff to attempt shift fine adapters for the tube that she has a at this time however we have consulted Gastroenterology for assistance in identifying and obtaining the appropriate GJ tube or equipment into continue to follow the patient as outpatient for maintenance. Patient has been tolerating small amounts of oral intake and has been consulted by nutrition services. Lab work is unremarkable, given the patient's particular requests, she states she would like particular consideration given to a CHE-MAHER button GJ jet to preferably at 18 [place], however we will defer to the recommendations of Gastroenterology. REVIEW OF SYSTEMS: 12 point ROS reviewed with patient. Pertinent positives mentioned above. Otherw ise negative. PHYSICAL EXAM: GENERAL: alert, weak, awake oriented x 3 HEENT: EOMI, Sclera non icteric, moist mucosa NECK: Supple, no JVD, trachea midline LUNGS: Clear breath sounds bilaterally. No wheezes HEART: Regular rate and rhythm. Normal S1 and S2, without murmurs ABD: Abdomen soft, nontender. Bowel sounds present EXT: No clubbing cyanosis or edema NEURO: Alert and oriented to person, follows commands Vital Signs (last 8hr) Date Time Temp Pulse Resp B/P (MAP) Pulse Ox O2 Delivery O2 Flow Rate FiO2 10/14/24 19:11 71 96/50 100 10/14/24 19:00 97.9 78 24 100/60 100 Room Air 10/14/24 19:00 69 87/40 100 10/14/24 18:00 71 86/46 100 10/14/24 17:00 83 101/60 100 10/14/24 16:30 64 92/47 96 10/14/24 16:00 64 97/45 99 10/14/24 15:50 65 101/52 100 10/14/24 15:50 86 95/56 10/14/24 14:45 70 102/52 98 LABS: Hematology Labs: Test 10/14/24 04:36 10/13/24 01:55 Range/Units White Blood Count 2.3 L 4.8-10.8 K/uL Red Blood Count 2.78 L 4.00-5.50 MIL/uL Hemoglobin 8.1 L 12.0-16.0 g/dL Hematocrit 24.8 L 36-48 % Mean Corpuscular Volume 89.2 79-99 fL Mean Corpuscular Hemoglobin 29.1 27.0-33.0 pg Mean Corpuscular Hemoglobin Concent 32.7 32.0-36.0 g/dL Red Cell Distribution Width 15.3 11.0-15.5 % Platelet Count 52 L 130-400 K/uL Mean Platelet Volume 11.4 H 7.5-10.5 fL Segmented Neutrophils % 67 40-70 % Lymphocytes % (Manual) 25 22-44 % Monocytes % (Manual) 8 2-9 % Nucleated Red Blood Cells 0.0 0.0-0.19 % Differential Comment MANUAL DIFFERENTIAL White Cell Morphology Comment Platelet Morphology Comment DECREASED Red Blood Cell Morphology HYPOCHROM CELLS 1+ Immature Granulocyte % (Auto) 0.3 0-1 % Neutrophils (%) (Auto) 71.1 40.0-77.0 % Lymphocytes (%) (Auto) 16.8 L 21.0-51.0 % Monocytes (%) (Auto) 6.6 3.0-13.0 % Eosinophils (%) (Auto) 4.6 0.0-8.0 % Basophils (%) (Auto) 0.6 0.0-5.0 % Neutrophils # (Auto) 2.5 1.8-7.7 K/uL Lymphocytes # (Auto) 0.6 L 1.0-4.8 K/uL Monocytes # (Auto) 0.2 0.1-1.0 K/uL Eosinophils # (Auto) 0.16 0.00-0.70 K/uL Basophils # (Auto) 0.02 0.00-0.20 K/uL Absolute Immature Granulocyte (auto 0.01 0-1 K/uL Chemistry Labs: Test 10/14/24 19:42 10/14/24 04:36 10/13/24 17:30 10/13/24 01:55 Range/Units Whole Blood Glucose 145 #H 70-110 MG/DL Sodium Level 136 136-145 mmol/L Potassium Level 4.5 3.5-5.1 mmol/L Chloride Level 101 101-111 mmol/L Carbon Dioxide Level 31 21-32 mmol/L Blood Urea Nitrogen 17 7-18 mg/dL Creatinine 0.7 0.5-1.0 mg/dL Glomerular Filtration Rate Calc 119 >90 mL/min Random Glucose 83 70-105 mg/dL Total Calcium 8.0 L 8.5-10.1 mg/dL Phosphorus Level 5.2 H 2.5-4.9 mg/dL Magnesium Level 2.20 1.80-2.40 mg/dL Vitamin B12 Level 599 193-986 pg/mL Bedside Glucose Comment Notified Nurse Serum Test, Qualitative NEGATIVE NEGATIVE Coagulation Labs: Test 10/13/24 08:37 Range/Units Prothrombin Time 11.9 H 9.6-11.6 SEC Prothromb Time International Ratio 1.14 0.85-1.15 Activated Partial Thromboplast Time 25.9 L 26.3-35.5 SEC DIAGNOSTICS / RADIOLOGY RESULTS: [ ] PLAN NEURO: Minimize central acting medications as possible. Maintain fall precautions, adequate lighting during the day PULMONARY: Supplemental 02 as needed. Maintain aspiration precautions at all times CARDIOVASCULAR: Follow hemodynamics. Vital signs per facility protocol GI & NUTRITION: Continue with nutritional support. Continue stool softeners and laxatives as needed. KIDNEYS & ELECTROLYTES: Strict monitoring of intake, output and overall fluid balance. Avoid nephrotoxic medications to the extent possible. Medications to be dosed according to renal function. Monitor electrolytes and replace as needed ENDOCRINE: Maintain blood glucose between 100-180 at all times. Hypoglycemia protocol in place INFECTIOUS DISEASE: Trend temperature, WBC and procalcitonin level Follow cultures, deescalate antibiotics as soon as possible. Panculture if new onset fever ONCOLOGY/HEMATOLOGY/COAGULATION: Monitor for s/s of bleeding Monitor hemoglobin, coagulation studies as needed SKIN: Pressure ulcer prevention per facility protocol Specialty mattress ORTHO/REHAB: Continue PT/OT Prophylaxis: Continue GI and DVT prophylaxis Code Status: Full Resuscitation Disposition: TBD Other: Total patient care time exceeds 35 minutes excluding all procedures. PRASHANTH BROWN Oct 14, 2024 21:35
[2024-10-15] VITALS: BP 100/59; PULSE 77; RESP 20; TEMP 98.6
[2024-10-15 01:12] VITALS: PULSE 77; RESP 20; O2SAT 99
[2024-10-15 04:12] VITALS: BP 103/58; PULSE 91; RESP 20; TEMP 98.7
--- NOTE | 2024-10-15 05:16 | NUR ---
AMA Patient left against medical advice, stated she did not want to wait for GI consult and adapter for J tube. She states she will make an appt to see her GI doctor Juan Pablo Burnette. IV to left forearm removed. Notified equipment operator warehouse and charge nurse Kizzy.
[2024-10-15 05:17] LABS: NUCLEATED RED BLOOD CELLS 0.0 % (0.0-0.19); PLATELET COUNT (AUTO) 57.0 K/uL (130-400); RED BLOOD CELL COUNT(AUTO) 3.18 MIL/uL (4.00-5.50); RED CELL DISTRIBUTION WIDTH 15.6 % (11.0-15.5); WHITE BLOOD COUNT (AUTO) 3.1 K/uL (4.8-10.8)
--- NOTE | 2024-10-15 05:21 | NUR ---
AMA Notified provider library acquisitions technician for Jaquelin Camejo Jaques of patient leaving AMA.
[2024-10-15 05:28] LABS: CREATININE 0.9 mg/dL (0.5-1.0); GLOMERULAR FILTR. RATE CALC 88.0 mL/min (>90); GLUCOSE,RANDOM 105.0 mg/dL (70-105); SODIUM SERUM 139.0 mmol/L (136-145); UREA NITROGEN, BLOOD 15.0 mg/dL (7-18)
--- NOTE | 2024-10-15 21:57 | DS ---
[facility] DISCHARGE SUMMARY Date Patient Seen: Oct 14, 2024 Time of Visit: 21:53 Supervising Physician: [Dr. Givens Primary Care Physician: Dr. Rosendo Caban Outpatient Specialists: [ ] Inpatient Consults: [ ] HOSPITAL COURSE: HPI (per admitting provider) Patient is a 33 year old female with a past mefical history for gastroparesis s/p gastric GJ tube placement on 09/23/24. Patient reported to the ED after the port for her J tube had falle nout preventing further use. Patient also states she suspects an infection as she has seen a substance she describes as pus in the line. Also with difficulty on current formula diet. Will place consult for dietary to assess possilbe new diet formula for fewer complications and grain cleaner flushses. Patient currently rudy pain, able to tolerate her meds orally, endorses severe allergy to medical tape and surgical glue. Also requesting a button port, advised we will proced toay with IR intervention tp replace current tube based on what is on hand and will schedule with GI for evaluation of tube options once she is able to tolerate feeds again. Patient agreed, pending IR GJ tube replacement. The patient was treated for the following problems: 10/14/24 Patient is seen at bedside today following her procedure for new GJ tube. She is comfortable, denies any pain. Patient was exposed to medical adhesive following the procedure which was promptly removed however patient currently with irritation and dermatitis at the site. 25 mg Benadryl IV push PRN q.6 hours ordered. The GJ tube that the patient has been placed is not c ompatible with the equipment the patient has not home at this time. Nursing staff to attempt shift fine adapters for the tube that she has a at this time however we have consulted Gastroenterology for assistance in identifying and obtaining the appropriate GJ tube or equipment into continue to follow the patient as outpatient for maintenance. Patient has been tolerating small edil unts of oral intake and has been consulted by nutrition services. Lab work is unremarkable, given the patient's particular requests, she states she would like particular consideration given to a CHE-MAHER button GJ jet to preferably at 18 [place], however we will defer to the recommendations of Gastroenterology. I was advised the following day at the patient had left AMA overnight. Stated she would follow up with Dr. Juan Pablo Burnette as outpatient. ACTIVE PROBLEM LIST FOR THE HOSPITALIZATION: GJ tube dysfunction -s/p exchange of new GJ tube by IR 10/14/24 CHRONIC PROBLEMS: continue previous management per PCP unless otherwise indicated Gastric sleeve Sanaz-en-Y Gastric bypass Gastroparesis Hypoithyroid Depression ANODIC TREATER FINDINGS/RECOMMENDATIONS: [ ] PROCEDURES: as mentioned above DISCHARGE MEDICATIONS: Pt hemodynamically stable and afebrile at time of discharge. PCP notified of patients admission, hospital course and discharge. PHYSICAL EXAM: GENERAL: alert, weak, awake oriented x 3 HEENT: EOMI, Sclera non icteric, moist mucosa NECK: Supple, no JVD, trachea midline LUNGS: Clear breath sounds bilaterally. No wheezes HEART: Regular rate and rhythm. Normal S1 and S2, without murmurs ABD: Abdomen soft, nontender. Bowel sounds present EXT: No clubbing cyanosis or edema NEURO: Alert and oriented to person, follows commands FOLLOW-UP: Follow-up with PCP in 2-3 days RECOMMENDATIONS: See Discharge Instructions This case was seen and discussed with my supervising physician. More than 30 minutes spent on discharge process, including evaluation of the patient, discussion with nursing staff, medication reconciliation and follow-up appointments PRASHANTH BROWN Oct 15, 2024 21:57
== END 2024-10-15 05:18 | disposition left against medical advice (07) ==
LOC: EDH 01:08 → INTOOBSV 03:33 → EDHIP 03:33 → OBSVTOIN 03:33 → 3AH 18:55 → OBSVTOIN 10-14 17:37 → INTOOBSV 10-14 17:37
PROVIDERS: ADMIT Internal Medicine Critical Care Medicine; ATTEND Internal Medicine Critical Care Medicine
DX: K31.84 Gastroparesis (principal); E03.9 Hypothyroidism, unspecified; E87.1 Hypo-osmolality and hyponatremia; I10 Essential (primary) hypertension; E87.8 Other disorders of electrolyte and fluid balance, not elsewhere classified; F32.A Depression, unspecified; D72.819 Decreased white blood cell count, unspecified; D64.9 Anemia, unspecified; L30.9 Dermatitis, unspecified; R79.1 Abnormal coagulation profile; R74.8 Abnormal levels of other serum enzymes; Z98.84 Bariatric surgery status; Z91.041 Radiographic dye allergy status; Z79.899 Other long term (current) drug therapy; Z98.890 Other specified postprocedural states; R27.0 Ataxia, unspecified; Z99.2 Dependence on renal dialysis; E78.00 Pure hypercholesterolemia, unspecified; Z94.83 Pancreas transplant status
CPT/HCPCS: 96376 ×3; 96375 ×3; 99284; 80048 ×3; 84703; 85025; 85610; 85730; 87086; 82948 ×9; 81001; 36415 ×3; 49452; 99156; 99157; 96365; 83735; 84100; 85027 ×2; 82306; 84207; 84425; 82607; G0378 ×50; J1200 ×3; J7042; J7070; J2405 ×4; J2270; J1885 ×4; J1171; C1769 ×2; C1758; B4087; Q9963; J3490 ×4; J3010; J7030; J2250; J3411; J1644; 49451; 96374; 99285